=== PATIENT | male | born 1965 | race Caucasian/White ===

== ENCOUNTER 2017-01-12 06:35 | Inpatient (IN) | payer SELFPAY ==
[2017-01-12] MEDS ORDERED: NS 0.9% 1000 ML* 1,000 ML IV ONE (06:47)
[2017-01-12] MEDS ORDERED: Rocuronium* 10 MG/ML VIAL IV ONE (07:02)
[2017-01-12] MEDS ORDERED: Rocuronium* 10 MG/ML VIAL ONE (07:02)
[2017-01-12] MEDS ORDERED: Etomidate* 2 MG/ML 10 ML VIAL IV ONE (07:02)
[2017-01-12] MEDS ORDERED: Succinylcholine* 20 MG/ML 10 ML VIAL IV ONE (07:04)
--- NOTE | 2017-01-12 07:17 | ED ---
Silvio Miramontes Adam, scribed for Suma Navarrouel on 01/12/17 at 0708 . Complex/Multi-Sys Presentation - HPI Summary HPI Summary: Pt is a 51 year old male who was found unresponsive at work this morning. Pt is unresponsive and being respirated with bag valve mask upon examination; hx obtained from EMS. The pt went outside to "get fresh air" at work this morning and shortly afterwards he was found unresponsive on the ground by a co-worker. On a nearby table there were caffeine tablets and unidentified blue pills. The workplace stated that they probably belonged to the patient and no one else. En route to the ED the pt has been in and out of consciousness. 2 full narcan were given with enlargement of pupils but no change in consciousness. Pt has been hypertensive up around 200 systolic. There is evidence of urinary incontinence. Positive Hx of alcohol, marijuana, and tobacco use. - History Of Current Complaint Time Seen by Provider: 01/12/17 06:47 Hx Obtained From: EMS Hx From Patient Unobtainable Due To: Other - Level 5 Caveat due to unresponsive patient Onset/Duration: Sudden Onset, Lasting Minutes Timing: Constant Severity Currently: Moderate Severity Initially: Moderate Aggravating Factor(s): Unknown, possibly drugs Alleviating Factor(s): Nothing Associated Signs And Symptoms: Positive: Decreased Responsiveness - Allergies/Home Medications Allergies/Adverse Reactions: Allergies Allergy/AdvReac Type Severity Reaction Status Date / Time No Known Allergies Allergy Verified 03/16/16 20:51 PMH/Surg Hx/FS Hx/Imm Hx Endocrine/Hematology History: Denies: Hx Diabetes, Hx Thyroid Disease Cardiovascular History: Reports: Hx Hypertension Denies: Hx Congestive Heart Failure, Hx Deep Vein Thrombosis, Hx Myocardial Infarction, Hx Pacemaker/ICD Respiratory History: Denies: Hx Asthma, Hx Chronic Obstructive Pulmonary Disease (COPD), Hx Lung Cancer GI History: Denies: Hx Gall Bladder Disease, Hx Gastrointestinal Bleed, Hx Ulcer, Hx Urosepsis History: Denies: Hx Kidney Stones, Hx Renal Disease Neurological History: Denies: Hx Dementia, Hx Migraine, Hx Seizures, Hx Transient Ischemic Attacks (TIA) Psychiatric History: Reports: Hx Anxiety, Hx Depression - Surgical History Surgery Procedure, Year, and Place: Appendectomy. Sinus Infectious Disease History: Denies: Hx Clostridium Difficile, Hx Hepatitis, Hx Human Immunodeficiency Virus (HIV), Hx of Known/Suspected MRSA, Hx Shingles, Hx Tuberculosis, Hx Known/ Suspected VRE, Hx Known/Suspected VRSA, History Other Infectious Disease - Family History Known Family History: Positive: Hypertension - mother, Diabetes - mother - Social History Alcohol Use: Daily Alcohol Amount: 8-10 beers or vodka daily Hx Substance Use: Yes Substance Use Type: Reports: Marijuana Substance Use Comment - Amount & Last Used: 3-4 times a week Hx Tobacco Use: Yes Smoking Status (MU): Heavy Every Day Tobacco Smoker Type: Cigarettes Amount Used/How Often: > 1 ppd Review of Systems Positive: incontinence Neurological: Other - Unresponsive All Other Systems Reviewed And Are Negative: No - Comments Additional Review of Systems Comments: Level 5 Caveat due to unresponsive patient Physical Exam Triage Information Reviewed: Yes Vital Signs Reviewed: Yes Completion Of Physical Exam Limited Due To: Level 5 - Level 5 Caveat due to unresponsive patient Appearance: Positive: Ill-Appearing Skin: Positive: Dry Respiratory/Lung Sounds: Positive: Rhonchi - Bilateral Cardiovascular: Positive: Tachycardia Neurological: Positive: Other - Unresponsive Psychiatric: Positive: Patient Uncooperative for Exam - Unresponsive Procedures - Intubation Time of Intubation: 06:50 - Approximately Intubation Method: orotracheal Tube Size (cm): 8.0 Intubation Complications: no complications - First attempt. Breath sounds equal. Diagnostics - Laboratory Lab Results: Lab Results 01/12/17 Range/Units 06:50 POC Glucose (mg/dL) 269 H (74-106) mg/dL Lab Statement: Any lab studies that have been ordered have been reviewed, and results considered in the medical decision making process. Complex Multi-Symp Course/Dx - Diagnoses Provider Diagnoses: Altered mental status, Drug overdose, Intracranial bleeding - Critical Care Time Critical Care Time: 30-74 min - ams/intubation Discharge - Discharge Plan Condition: Stable Disposition: OTHER Discharge Disposition Comment: Signed out to Dr. Lombardi at 07:00 Referrals: No Primary Care Phys,NOPCP [Primary Care Provider] - The documentation as recorded by the Silvio shelby Adam accurately reflects the service I personally performed and the decisions made by , Min Navarro.
[2017-01-12 07:19] LABS: Hematocrit 52 % (42-52); Hemoglobin 17.5 g/dl (14.0-18.0); Mean Corpuscular HGB Conc 34 g/dl (31-36); Mean Corpuscular Hemoglobin 34 pg (27-31); Mean Corpuscular Volume 102 fL (80-94); Mean Platelet Volume 9 um3 (7.4-10.4); Red Blood Count 5.08 10^6/ul (4.0-5.4); Red Cell Distribution Width 14 % (10.5-15); White Blood Count 15.8 10^3/ul (3.5-10.8)
[2017-01-12 07:22] LABS: Add Diff/Slide Review? Slide Review Added; Comments Flag Yes
[2017-01-12 07:31] LABS: ALT 51 U/L (7-52); AST 51 U/L (13-39); Albumin 4.5 g/dL (3.2-5.2); Alkaline Phosphatase 96 U/L (34-104); Anion Gap 12 mmol/L (2-11); BUN/Creatinine Ratio 11.5 (8-20); Blood Urea Nitrogen 11 mg/dL (6-24); CO2 Carbon Dioxide 24 mmol/L (22-32); Calcium 8.7 mg/dL (8.6-10.3); Chloride 97 mmol/L (101-111); EGFR African American 107.1 (>60); EGFR Non-African American 83.3 (>60); Globulin 3.4 g/dL (2-4); Glucose 284 mg/dL (70-100); Potassium 3.3 mmol/L (3.5-5.0); Sodium 133 mmol/L (133-145); Total Protein 7.9 g/dL (6.4-8.9)
[2017-01-12 07:32] LABS: Troponin I 0.03 ng/mL (<0.04)
[2017-01-12 07:33] LABS: Acetaminophen < 15 mcg/mL; Alcohol 104 mg/dL (<10); Salicylate < 2.50 mg/dL (<30)
[2017-01-12 07:36] LABS: Resp Rate 16; Ventilator Volume 550
[2017-01-12 07:43] LABS: TSH (Thyroid Stimulating Horm) 3.74 mcIU/mL (0.34-5.60)
[2017-01-12 07:56] LABS: PCO2 Arterial 96 mmHg (35-45)
[2017-01-12 08:26] LABS: Urine Bacteria Absent (Absent); Urine Bilirubin Negative (Negative); Urine Glucose 3+(>=500 mg/dL) (Negative); Urine Nitrite Negative (Negative)
[2017-01-12 08:33] LABS: Benzodiazepine Urine Screen None Detected (None Detect)
--- NOTE | 2017-01-12 08:55 | RAD ---
HISTORY: Altered mental status COMPARISONS: February 21, 2016 TECHNIQUE: Multiple contiguous axial CT scans were obtained of the head without intravenous contrast. FINDINGS: HEMORRHAGE/INFARCT: There is no hemorrhage or acute infarct. MASSES/SHIFT: There is no mass or shift. EXTRA-AXIAL SPACES: There are no extra-axial fluid collections. SULCI AND VENTRICLES: The sulci and ventricles are normal in size and position for the patient's stated age. CEREBRUM: There are no focal parenchymal abnormalities. BRAINSTEM: There are no focal parenchymal abnormalities. CEREBELLUM: There are no focal parenchymal abnormalities. VESSELS: The vessels are grossly normal. PARANASAL SINUSES: The paranasal sinuses are clear. ORBITS: The orbits are unremarkable. BONES AND SOFT TISSUE: No bone or soft tissue abnormalities are noted. OTHER: None IMPRESSION: NO ACUTE INTRACRANIAL PATHOLOGY.
--- NOTE | 2017-01-12 09:38 | RAD ---
HISTORY: Overdose COMPARISONS: February 18, 2014 VIEWS:1: Single frontal portable view of the chest at 7:20 AM FINDINGS: LINES AND TUBES: The endotracheal tube is noted with the overlying the trachea at the level of the clavicles. CARDIOMEDIASTINAL SILHOUETTE: The cardiomediastinal silhouette is normal for portable technique. PLEURA: The costophrenic angles are sharp. No pleural abnormalities are noted. LUNG PARENCHYMA: There is patchy alveolar opacification of the right lung base ABDOMEN: The upper abdomen is clear. There is no subphrenic gas. BONES AND SOFT TISSUES: No bone or soft tissue abnormalities are noted. IMPRESSION: 1. LINES AND TUBES ABOVE. 2. PATCHY RIGHT BASILAR ATELECTASIS VERSUS CONSOLIDATION
[2017-01-12] MEDS ORDERED: Enoxaparin(*) 40 MG/0.4 ML SYR SUBCUT SCH (14:00)
[2017-01-12] MEDS ORDERED: NS 0.9% 500 ML* 500 ML IV SCH (14:00)
--- NOTE | 2017-01-12 14:46 | ED ---
Tae Miramontes Billy, scribed for Mango Lombardi MD on 01/12/17 at 0748 . Altered Mental Status - HPI Summary HPI Summary: Patient signed out by Dr. Navarro at shift change. Patient is a 51 year-old male coming to [facility] after he was found unresponsive at work this morning. Nurse reports that the patient went outside to "get fresh air," and was found unresponsive shortly afterwards. There were caffeine tablets and some unknown blue pill nearby. He was given Narcan with pupillary response but no change in consciousness. At this time in the ED, he is intubated with spontaneous heart sounds. Level 5 caveat. - History Of Current Complaint Chief Complaint: EDAltMentalStatus Stated Complaint: UNRESPONSIVE Time Seen by Provider: 01/12/17 06:47 Hx Obtained From: EMS, Medical Records Hx From Patient Unobtainable Due To: Other - Level 5 Caveat due to unresponsive patient Onset/Duration: Unknown Timing: Constant Severity Initially: Moderate Severity Currently: Moderate Character: Responsiveness Aggravating Factor(s): Unknown Alleviating Factor(s): Unknown - Allergies/Home Medications Allergies/Adverse Reactions: Allergies Allergy/AdvReac Type Severity Reaction Status Date / Time No Known Allergies Allergy Verified 03/16/16 20:51 PMH/Surg Hx/FS Hx/Imm Hx Endocrine/Hematology History: Denies: Hx Diabetes, Hx Thyroid Disease Cardiovascular History: Reports: Hx Hypertension Denies: Hx Congestive Heart Failure, Hx Deep Vein Thrombosis, Hx Myocardial Infarction, Hx Pacemaker/ICD Respiratory History: Denies: Hx Asthma, Hx Chronic Obstructive Pulmonary Disease (COPD), Hx Lung Cancer GI History: Denies: Hx Gall Bladder Disease, Hx Gastrointestinal Bleed, Hx Ulcer, Hx Urosepsis History: Denies: Hx Kidney Stones, Hx Renal Disease Neurological History: Denies: Hx Dementia, Hx Migraine, Hx Seizures, Hx Transient Ischemic Attacks (TIA) Psychiatric History: Reports: Hx Anxiety, Hx Depression - Surgical History Surgery Procedure, Year, and Place: Appendectomy. Sinus Infectious Disease History: Denies: Hx Clostridium Difficile, Hx Hepatitis, Hx Human Immunodeficiency Virus (HIV), Hx of Known/Suspected MRSA, Hx Shingles, Hx Tuberculosis, Hx Known/ Suspected VRE, Hx Known/Suspected VRSA, History Other Infectious Disease, Traveled Outside the [place] in Last 30 Days - UNKNOWN - Family History Known Family History: Positive: Hypertension - mother, Diabetes - mother - Social History Alcohol Use: Daily Alcohol Amount: 8-10 beers or vodka daily Hx Substance Use: Yes Substance Use Type: Reports: Marijuana Substance Use Comment - Amount & Last Used: 3-4 times a week Hx Tobacco Use: Yes Smoking Status (MU): Heavy Every Day Tobacco Smoker Type: Cigarettes Amount Used/How Often: > 1 ppd Review of Systems Neurological: Other - Unresponsive All Other Systems Reviewed And Are Negative: No - Comments Additional Review of Systems Comments: Level 5 Caveat due to unresponsive patient Physical Exam - Summary Physical Exam Summary: The patient is an obese male, nonresponsive, and intubated at this time in the ED. Vital signs are stable at this time. The skin is warm and dry and skin color reflects adequate perfusion. HEENT: The head is normocephalic and atraumatic. Pinpoint pupils. The conjunctivae are clear and without drainage. Respiratory: Chest is non-tender. Good lung sounds with intubation. Cardiovascular: Spontaneous heart sounds. Heart is regular rate and rhythm. There is no murmur or rub auscultated. There is no peripheral edema and pulses are symmetrical and equal. Abdomen: The abdomen is soft and non-tender. There are normal bowel sounds heard in all four quadrants and there is no organomegaly palpated. Musculoskeletal: There is no peripheral edema or calf tenderness elicited. Neurological: Patient is nonresponsive. Psychiatric: Not obtainable from the patient at this time. Triage Information Reviewed: Yes Vital Signs On Initial Exam: Vital Signs: Temp Pulse Resp BP Pulse Ox 93.0 F 96 19 164/88 96 01/12/17 06:40 01/12/17 07:15 01/12/17 07:15 01/12/17 07:15 01/12/17 07:15 Vital Signs Reviewed: Yes Completion Of Physical Exam Limited Due To: Level 5 - Level 5 Caveat due to unresponsive patient Procedures - Intubation Time of Intubation: 06:50 - Approximately Intubation Method: orotracheal Tube Size (cm): 8.0 Intubation Complications: no complications - First attempt. Breath sounds equal. Diagnostics - Vital Signs Vital Signs Pulse Resp BP Pulse Ox 01/12/17 07:15 96 19 164/88 96 01/12/17 07:12 97 19 97 01/12/17 07:01 176/95 01/12/17 06:51 103 22 100 01/12/17 06:45 98 141/71 99 01/12/17 06:41 90 99 01/12/17 06:40 137/68 - Laboratory Lab Results: Lab Results 01/12/17 Range/Units 06:50 POC Glucose (mg/dL) 269 H (74-106) mg/dL Result Diagrams: 01/12/17 06:39 01/12/17 06:39 Lab Statement: Any lab studies that have been ordered have been reviewed, and results considered in the medical decision making process. - Radiology CXR Radiology Interpretation Completed By: Radiologist - 1. LINES AND TUBES ABOVE. 2. PATCHY RIGHT BASILAR ATELECTASIS VERSUS CONSOLIDATION - CT Brain CT Interpretation: No Acute Changes CT Interpretation Completed By: Radiologist Altered Mental Statu Course/Dx - Course Assessment/Plan: Patient signed out by Dr. Navarro at shift change. Patient is a 51 year-old male coming to [facility] after he was found unresponsive at work this morning. Nurse reports that the patient went outside to "get fresh air," and was found unresponsive shortly afterwards. There were caffeine tablets and some unknown blue pill nearby. He was given Narcan with pupillary response but no change in consciousness. At this time in the ED, he is intubated with spontaneous heart sounds. Level 5 caveat. The patient was intubated by Dr. Navarro and he requested to follow up on CXR, CT brain, and to admit the patient to the ICU. Bloodwork shows WBC of 15.8, potassium of 3.3, chloride 97, anion gap is 12, glucose is 284, lactic acid is 5.2. UA is negative for UTI. Urine toxicology positive for opiates, alcohol, and marijuana. CT of the brain showed no acute intracranial pathology. CXR is read as right basilar atelectasis vs consolidation. In the ED course, the patient remained stable. His vital signs were stable. The patient was still under sedation. I discussed the case with Dr. Dyer from the ICU who came and assessed the patient. After his assessment , he recommended that the patient be admitted to his services to the ICU. - Diagnoses Discharge Diagnoses: Acute respiratory failure - Provider Notifications Discussed Care Of Patient With: Dr. Rashawn Dyer @ 2620: will see patient in the ED. Dr. Rashawn Dyer @ 6140: accepted patient for admission. Discharge - Discharge Plan Condition: Critical Disposition: ADMITTED TO [facility] documentation as recorded by the Tae shelby Billy accurately reflects the service I personally performed and the decisions made by me, Mango Lombardi MD.
--- NOTE | 2017-01-12 16:33 | HP ---
ADMISSION HISTORY AND PHYSICAL: DATE OF ADMISSION: 01/12/17 REASON FOR ADMISSION: Drug overdose. HISTORY OF PRESENT ILLNESS: This patient is a 51-year-old white male with a history of drug and alc ohol abuse, who was brought to the emergency department earlier this morning comatose and was intuba narendra and placed on mechanical ventilation. The patient apparently had taken a break from his work an d was found down by his fellow workers. There is no history available from the patient, but karl rosenthal to the patient's family, he has a history of heavy alcohol use and drug abuse, primarily involving benzodiazepines. The patient also has a history of hypertension. OUTPATIENT MEDICATIONS: 1. Amlodipine 10 mg p.o. daily. 2. Lexapro 10 mg p.o. daily. 3. Xanax 0.25 mg q.8 hours p.r.n. anxiety. 4. Ramipril 10 mg daily. ALLERGIES: There are no known drug allergies. SOCIAL HISTORY: Unavailable. REVIEW OF SYSTEMS: Unavailable. PHYSICAL EXAM: GENERAL: The patient is unresponsive and receiving mechanical ventilation through an endotracheal tube. VITAL SIGNS: Blood pressure 170/90, temp 94 degrees, pulse 96, respiratory rate 14, O2 sat 96% with an FiO2 of 100%. HEENT: Pupils mid position and sluggishly reactive. Corneal reflexes intact bilaterally. No facia l asymmetry. NECK: Supple and there were no masses or jugular venous distention. CHEST: Clear to auscultation. CARDIAC EXAM: Regular rhythm. No murmurs, rubs or gallops. ABDOMEN: Protuberant. EXTREMITIES: Cool but not cyanotic. There was no edema. NEUROLOGIC EXAM: There were no apparent focal findings. ADMISSION LABORATORY DATA: Significant abnormalities included a white count of 15.8, potassium 3.3, glucose 284, lactic acid 5.2, and urine screen positive for opiates and cannabinoids. Urine was ne gative for benzodiazepines, amphetamine, barbiturates and cocaine. Serum alcohol was 104 mg/dL. Ch est x-ray showed no infiltrates. Head CT showed no intracranial pathology. EKG is pending. OVERALL IMPRESSION: Combined opiate and ethanol overdose. MANAGEMENT PLAN: The patient will receive mechanical ventilation until mental status improves. We w ill also warm patient to normothermia. No need for aggressive fluid therapy or vasopressor therapy at this time, but I will repeat the serum lactate measurement. CRITICAL CARE TIME: 50 minutes. [id number]/[facility] #: [id number]
[2017-01-12 17:07] LABS: Hematocrit 50 % (42-52); Hemoglobin 16.6 g/dl (14.0-18.0)
[2017-01-12] MEDS ORDERED: Ondansetron INJ* 2 MG/ML VIAL IV PRN (17:59)
--- NOTE | 2017-01-12 18:21 | PN ---
Progress Note - Progress Note Note: Patient awoke during the day, and was weaned and extubated without incident. About one hour after extubation, patient vomited "quiñones colored" emesis (? blood). Blood pressure did not change, and hemoglobin did not decrease significantly. He was then placed on a protonix drip. Patient has no Hx of PUD.
[2017-01-12] MEDS: Pantoprazole IV* 80 MG in NS 0.9% 250 ML* 250 ML IVPB SCH (18:22)
[2017-01-12] MEDS: Acetaminophen TAB* 325 MG PO PRN (23:38)
[2017-01-13] MEDS: hydrALAZINE IV* 20 MG/ML VIAL IV PRN ×2 (02:52→07:54)
[2017-01-13] MEDS: Pantoprazole IV* 80 MG in NS 0.9% 250 ML* 250 ML IVPB SCH (04:18)
[2017-01-13 04:37] LABS: Hematocrit 44 % (42-52); Hemoglobin 14.9 g/dl (14.0-18.0); Mean Corpuscular HGB Conc 34 g/dl (31-36); Mean Corpuscular Hemoglobin 34 pg (27-31); Mean Corpuscular Volume 100 fL (80-94); Mean Platelet Volume 10 um3 (7.4-10.4); Red Blood Count 4.38 10^6/ul (4.0-5.4); Red Cell Distribution Width 14 % (10.5-15); White Blood Count 14.5 10^3/ul (3.5-10.8)
[2017-01-13] MEDS: Acetaminophen TAB* 325 MG PO PRN (07:54)
[2017-01-13 08:50] VITALS: BP 175/119
[2017-01-13] MEDS ORDERED: amLODIPine TAB* 5 MG PO SCH (09:00)
[2017-01-13] MEDS ORDERED: Ramipril CAP* 10 MG PO SCH (09:00)
--- NOTE | 2017-01-13 10:57 | DCNOTE ---
51 y/o male admitted with ethanol-opiate overdose, initially requiring mechanical ventilation. Was weaned and extubated without incident. After extubation, he had one episode of vomiting "quiñones colored" emesis, and was started on a protonix drip. There were no other episodes of vomiting, and no dramatic drop in hemoglobin. Therefore, significant upper GI hemorrhage unlikely. On the day following admission, patient is doing well - alert, oriented, and appears comfortable. He is signing out against medical advice (as I had wanted to monitor him for possible upper GI bleeding). Other medical problems are narcolepsy and hypertension, which were not problems during this hospitalization. Final Dx: Alcohol-opiate overdose: unintentional. Discharge Plan: Patient is signing out AMA (and is mentally competent). He will resume his premorbid outpatient meds: amlodipine (10 mg pO qd), ramipril (10 mg PO qd), xanax (0.25 mg PO q 6h PRN).
== END 2017-01-13 13:15 | disposition home or self-care (01) | DRG 917 ==
LOC: ED 06:35 → ICU 08:00
PROVIDERS: ADMIT Internal Medicine Critical Care Medicine; ATTEND Internal Medicine Critical Care Medicine
PROC: 5A1935Z Respiratory Ventilation, Less than 24 Consecutive Hours (ICD-10-PCS; principal; 2017-01-12)
PROC: 0BH17EZ Insertion of Endotracheal Airway into Trachea, Via Natural or Artificial Opening (ICD-10-PCS; 2017-01-12)
DX: T40.601A Poisoning by unspecified narcotics, accidental (unintentional), initial encounter (principal); R40.20 Unspecified coma; T51.0X1A Toxic effect of ethanol, accidental (unintentional), initial encounter; Y92.9 Unspecified place or not applicable; I10 Essential (primary) hypertension; Z78.1 Physical restraint status; R32 Unspecified urinary incontinence; F41.9 Anxiety disorder, unspecified; F32.9 Major depressive disorder, single episode, unspecified; Z82.49 Family history of ischemic heart disease and other diseases of the circulatory system; Z83.3 Family history of diabetes mellitus; F17.210 Nicotine dependence, cigarettes, uncomplicated; G47.419 Narcolepsy without cataplexy; R11.10 Vomiting, unspecified
CPT/HCPCS: 36415; 70450; 71010; 80053; 80307; 80320; 80329; 81003; 81015; 82803; 83605; 84443; 84484; 85014; 85018; 85025; 85027; 87641; 94002; A9270-GY; G0480; J0330; J0360; J1650